=== PATIENT | female | born 1960 | race Hispanic/Latino ===

== ENCOUNTER → 2021-11-14 | Outpatient (CLI) | payer BC | END | disposition home or self-care (01) | LOC: RAH 14:52 | PROVIDERS: ATTEND Family Medicine | DX: Z12.31 Encounter for screening mammogram for malignant neoplasm of breast (principal) | CPT/HCPCS: 77067 ==

== ENCOUNTER → 2023-03-12 | Outpatient (CLI) | payer BC | END | disposition home or self-care (01) | LOC: SHCH 07:28 | PROVIDERS: ATTEND Internal Medicine Cardiovascular Disease | DX: I87.2 Venous insufficiency (chronic) (peripheral) (principal); R60.9 Edema, unspecified | CPT/HCPCS: 93970 ==

== ENCOUNTER → 2023-04-29 | Outpatient (CLI) | payer BC | END | disposition home or self-care (01) | LOC: RAH 15:21 | PROVIDERS: ATTEND Family Medicine | DX: Z12.31 Encounter for screening mammogram for malignant neoplasm of breast (principal) | CPT/HCPCS: 77067 ==

== ENCOUNTER → 2024-01-26 | Outpatient (CLI) | payer BC ==
[~2024-01-26] MED LIST: IOHEXOL 350 MG/ML 100ML INFUS..BTL IV ONE
--- NOTE | 2024-01-26 12:39 | HMCIMG ---
CT ABDOMEN/PELVIS W/WO CONTRAS REASON: ELEVATED LIPASE, LIVER ENZYMES COMPARISON: None. TECHNIQUE: Images are obtained from lung bases to the symphysis pubis following IV contrast, 100 cc Omnipaque [id number]. Oral contrast was administered as well. FINDINGS: Lung bases are clear. There is nodular hepatic surface contour. There is splenomegaly. These findings suggest possible cirrhosis. There are some varices present posterior to the stomach. There is no visible ascites.. There are normal-appearing kidneys.. Spleen and pancreas appear unremarkable. There has been a previous cholecystectomy. There is moderate sigmoid diverticulosis without evidence of diverticulitis. Bowel loops appear otherwise unremarkable. There is been partial resection of the colon. Obstruction. There is no evidence of free fluid or intraperitoneal air. There are no focal fluid collections. Aorta and retroperitoneum appear normal as do pelvic soft tissue structures. The anterior abdominal wall is intact. Osseous structures appear unremarkable. IMPRESSION: 1. Nodular liver, splenomegaly and varices consistent with cirrhosis, there is no evidence of ascites. 2. Moderate sigmoid diverticulosis without evidence of diverticulitis. 3. No acute finding in the abdomen or pelvis. CT was performed with one or more following dose reduction techniques: automated exposure control, adjustment of the mA and kv according to patient's size, or use of a iterative reconstruction technique.
== END | disposition home or self-care (01) ==
LOC: RAH 10:09
PROVIDERS: ATTEND Family Medicine
DX: K57.30 Diverticulosis of large intestine without perforation or abscess without bleeding (principal); R16.1 Splenomegaly, not elsewhere classified; R74.8 Abnormal levels of other serum enzymes; K74.60 Unspecified cirrhosis of liver; D69.6 Thrombocytopenia, unspecified; Z90.49 Acquired absence of other specified parts of digestive tract
CPT/HCPCS: 74178; Q9967

== ENCOUNTER → 2024-09-04 | Outpatient (CLI) | payer BC ==
[~2024-09-04] MED LIST changes: +AEC81 PO; +FAMO20TA8 PO; +FURO20TA6 PO; +GADOBENATE DIMEGLUMINE 20 ML IV ONE; +GADOTERATE MEGLUMINE 10 MMOL/20 ML VIAL IV ONE; +INSU200I4 SQ; -IOHEXOL 350 MG/ML 100ML INFUS..BTL IV ONE; +NADO40TA45 PO; +OMEG100033 PO; +OMEP-420 PO; +RIFA200T2 PO; +SPIR25TA6 PO; +TIRZ12.5 SQ; +gabapentin PO
--- NOTE | 2024-09-04 16:35 | HMCIMG ---
MR ABDOMEN W/WO CON HISTORY: Elevated lipase COMPARISON: None TECHNIQUE: MRI of the abdomen was performed utilizing multiple pulse sequences in axial, coronal and sagittal planes. Patient was given 19 cc of Clariscan through intravenous route. Dynamic imaging technique was used. FINDINGS: No pleural effusion is seen bilaterally. The liver measures 12 cm. Spleen measured 13 cm. There is irregular liver contour suggestive of liver cirrhosis. The adrenal glands and pancreas are unremarkable. If there is clinical suspicion for pancreatitis, lipase correlation may be helpful. Both kidneys are seen without hydronephrosis. There is no adenopathy or ascites. Gallbladder is not well visualized. Common duct measures 7 mm. There are abdominal varices. IMPRESSION: 1. Cirrhotic liver with enlarged spleen and abdominal varices. If there is clinical suspicion for pancreatitis, lipase correlation would BE helpful.
== END | disposition home or self-care (01) ==
LOC: RAH 14:28
PROVIDERS: ATTEND Family Medicine
DX: K74.60 Unspecified cirrhosis of liver (principal); R16.1 Splenomegaly, not elsewhere classified; R74.8 Abnormal levels of other serum enzymes
CPT/HCPCS: 74183; A9577; A9575

== ENCOUNTER → 2025-03-02 | Outpatient (CLI) | payer BC ==
[~2025-03-02] MED LIST changes: -GADOBENATE DIMEGLUMINE 20 ML IV ONE; -GADOTERATE MEGLUMINE 10 MMOL/20 ML VIAL IV ONE
--- NOTE | 2025-03-03 01:59 | HMCIMG ---
STUDY MR LUMBAR SPINE WITHOUT INTRAVENOUS CONTRAST HISTORY M54.42 lumbago with left-sided sciatica TECHNIQUE Multiplanar MR images of the lumbar spine obtained without intravenous contrast COMPARISON Lumbar spine radiographs dated 02/19/25 FINDINGS VERTEBRAE AND ALIGNMENT Moderate degenerative lumbar spondylosis. Vertebral body heights are preserved with no acute fracture or destructive lesion. No high-grade listhesis; overall sagittal alignment is maintained. DISCS Multilevel disc desiccation, most pronounced at L3-L4 and L4-L5. These levels demonstrate Pfirrmann grade III degeneration, with associated disc height loss and annular fissuring at L4-L5. Adjacent levels show milder Pfirrmann grade II changes. SPINAL CANAL AND NEURAL FORAMINA BY LEVEL L1-L2: No significant disc pathology, canal stenosis, or foraminal narrowing. L2-L3: No significant disc bulge, canal stenosis, or foraminal narrowing. L3-L4: Degenerative disc bulge with right-dominant facet arthropathy and ligamentum flavum thickening produces mild to moderate central canal stenosis, Schizas grade B. There is right-predominant severe neural foraminal stenosis on both sides, graded Willis 3 bilaterally, with compressive neuropathy of the exiting L3 roots, more marked on the right. L4-L5: Disc height loss with circumferential bulge and annular fissure, together with [id number]-left facet joint degeneration, results in mild to moderate canal narrowing, Schizas grade B. There is right-predominant moderate neural foraminal stenosis on both sides, graded approximately Willis 2 bilaterally, with root distortion and compressive neuropathy of the exiting L4 root on the left and billy root compression on the right. L5-S1: Disc and canal are preserved without significant central or foraminal stenosis. SPINAL CORD AND CAUDA EQUINA Conus and cauda equina morphology and signal are within normal limits. No intradural mass. PARASPINAL AND EXTRASPINAL SOFT TISSUES Posterior lumbar subcutaneous edema without organized collection. Early focal bulging of the right lateral abdominal wall musculature in the lumbar region with subtle protrusion of intra-abdominal contents, consistent with developing abdominal wall laxity or early hernia; no evidence of incarceration. 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 At L3-L4 there is right-predominant severe bilateral foraminal stenosis (Willis grade 3) with compressive neuropathy of the exiting L3 roots, worse on the right; at L4-L5 there is right-predominant moderate bilateral foraminal stenosis (Willis grade 2) with root distortion and compressive neuropathy of the exiting L4 root on the left and billy root compression on the right. * Background moderate multilevel lumbar spondylosis without high-grade central canal compromise outside L3-L4 and L4-L5. * Posterior lumbar subcutaneous edema and early right lateral abdominal wall muscular bulging with protrusion of contents, compatible with early abdominal wall hernia formation without complicating features. /[place]
== END | disposition home or self-care (01) ==
LOC: RAH 10:35
PROVIDERS: ATTEND Family Medicine
DX: M47.816 Spondylosis without myelopathy or radiculopathy, lumbar region (principal); M54.42 Lumbago with sciatica, left side; M48.061 Spinal stenosis, lumbar region without neurogenic claudication; G95.19 Other vascular myelopathies; M51.360 Other intervertebral disc degeneration, lumbar region with discogenic back pain only
CPT/HCPCS: 72148